=== PATIENT | female | born 1940 | race Caucasian/White ===

== ENCOUNTER 2018-06-19 12:58 | Emergency (ER) | payer MEDICARE, MEDICAID ==
[~2018-06-19] VITALS: Ht 162.6 cm; Wt 63.5 kg
[2018-06-19 13:00] VITALS: BP 146/64
--- NOTE | 2018-06-19 13:00 | NUR ---
ED Nurse Note: pt brought in by ambulance from [facility] c/o clogged peg tube, noted peg tube on epigastric region, noted clogged connector. connector changed and flushed. ERMD at the bedside. pt on trach, called RT. called xray for verification.
--- NOTE | 2018-06-19 13:04 | Emergency Room Report ---
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 and chronically debilitated There was no reports of vomiting no obvious reports of fevers Allergies: Coded Allergies: No Known Allergies (Unverified , 06/19/18) Patient History Limited by: medical condition Past Medical History: see triage record Pertinent Family History: unable to obtain Now: No Reviewed Nursing Documentation: PMH: Agreed; PSxH: Agreed Nursing Documentation-PMH Past Medical History: No History, Except For Hx Hypertension: Yes - anemia, hypothyroidism, Hx Diabetes: Yes Review of Systems All Other Systems: limited - Other than the ones mentioned in the history of present illness all others are reviewed however they do stay limited due to the patient's mental status Physical Exam Vital Signs Date Time Temp Pulse Resp B/P (MAP) Pulse Ox O2 Delivery O2 Flow Rate FiO2 06/19/18 12:46 98.6 88 18 146/69 Sp02 EP Interpretation: reviewed, normal General Appearance: no apparent distress Head: normocephalic, atraumatic Eyes: bilateral eye PERRL, bilateral eye EOMI ENT: normal pharynx Neck: supple, other - Tracheostomy in place Respiratory: no retraction, no accessory muscle use, crackles - Bilaterally Cardiovascular #1: regular rate, rhythm Gastrointestinal: other - J G-tube appearing tube in place through the stoma, the distal connection appears to have significant material that is likely blocking the tube Musculoskeletal: other - Chronically debilitated following command Neurologic: responsive Skin: normal color Lymphatic: no adenopathy Medical Decision Making Diagnostic Impression: Primary Impression: Feeding tube dysfunction Additional Impression: Clogged feeding tube ER Course Given the appearance and evaluation of the feeding tube the distal connection appears clogged this was removed and a new try valve adapter connected distally With this the feeding tube flushes easily KUB with Gastrografin is obtained to confirm location Other X-Ray Diagnostic Results Other X-Ray Diagnostic Results : X-Ray ordered: KUB # of Views/Limited Vs Complete: 1 View Indication: Other - Tube placement EP Interpretation: Yes Interpretation: no dislocation, no soft tissue swelling, no fractures, other - Gastrografin within lumen no obvious extravasation Impression: No acute disease Electronically Signed by: Gulshan Parish DO Last Vital Signs Date Time Temp Pulse Resp B/P (MAP) Pulse Ox O2 Delivery O2 Flow Rate FiO2 06/19/18 12:46 98.6 88 18 146/69 Status: improved Disposition: XFER SNF Condition: Improved Additional Instructions: Patient is provided with the discharge instructions notified to follow up with primary doctor in the next 2-3 days otherwise return to the er with any worsening symptoms. Please note that this report is being documented using [employer] technology. This can lead to erroneous entry secondary to incorrect interpretation by the dictating instrument. Gulshan Parish DO Jun 19, 2018 13:03
--- NOTE | 2018-06-19 13:10 | NUR ---
ED Nurse Note: dressing applied on peg tube site, pt changed into new gown and cleaned.
--- NOTE | 2018-06-19 13:25 | NUR ---
ED Nurse Note: pt cleared to be d/c per ERMD, pt peg tube verified with xray, called [facility] and spoke with Dedra koch to give report, endorsed care to ambulance personnel, discharge paperwork provided.
--- NOTE | 2018-06-20 08:36 | Diagnostic Imaging Report ---
Indication: Reason For Exam: TUBE PLCMT Technique: Supine view of the abdomen after injection of water-soluble contrast into gastrostomy Comparison: none Findings: Contrast opacifies the stomach. No contrast extravasation is demonstrated. There is evidence of contrast reflux into the distal esophagus. The bowel gas pattern is unremarkable. There are cholecystectomy clips. There is scoliotic deformity. Impression: Satisfactory position of gastrostomy tube Evidence of possible gastroesophageal reflux
== END 2018-06-19 13:45 ==
LOC: EDBD 12:58 → EMR 13:34
DX: K94.23 Gastrostomy malfunction (principal); Z93.0 Tracheostomy status; E11.9 Type 2 diabetes mellitus without complications; E03.9 Hypothyroidism, unspecified; I10 Essential (primary) hypertension
CPT/HCPCS: 74018; 94002; 94664; 99284